=== PATIENT | male | born 1935 | race Caucasian/White ===

== ENCOUNTER 2017-04-24 11:38 | Emergency (ER) | payer MEDICARE, SELFPAY ==
[~2017-04-24] VITALS: Ht 185.4 cm; Wt 74.8 kg
[~2017-04-24 11:38] MED LIST: ALBU90OI INH; ALEN70 PO; ALL DAY ALLERGY10 M1 PO; ALLER-TEC; ALLER-TEC D 5-1 EACH PO; AMAN100 PO; ASPI81EC PO; CALCAVITD PO; CALCIUM 500 +1 EAC2 PO; CARV3.125; CARV3.125 PO; CEPH500 PO; CETI5 PO; CIPR500 PO; CLOP75 PO; Carbidopa-Levo1 EAC1; Carbidopa-Levo1 EAC2 PO; Detrol LA2 MG PO; FURO20; FURO20 PO; GAVILAX17 GM PO; GENT.3OPSA OD; LEVCAR2510 PO; LEVFLO500 PO; LEVSOD50 PO; LISI5; LISI5 PO; Lisinopril2.5 MG; METO50ER PO; MYRBETRIQ50 MG PO; Norco 10-325 T1 EACH PO; OXYB5 PO; PRAM.5; PRAM.5 PO; Percocet 5-3251 EACH PO; Prednisone20 MG PO; SIMV10 PO; SPIR25; SPIR25 PO; Synthroid25 MCG PO; TOLTERODINE TARTRATE; TOLTERODINE TARTRATE PO; TRIA80TC TOP; TROSPIUM CHLORI20 MG; VICODIN 5-3001 EACH PO; Ventolin5 MG/1 ML INH; XARELTO20 MG; ZYRTEC10 M1 PO
[2017-04-24] MEDS ORDERED: CEPH500 PO (12:33)
[2017-04-24] MEDS ORDERED: GABA300 PO (13:55)
[2017-04-24] MEDS ORDERED: TRIA15CR3 TOP (13:56)
[2017-09-19] MEDS ORDERED: ELIQUIS5 MG PO (02:17)
[2017-09-19] MEDS ORDERED: LORA.5 PO (02:18)
[2017-09-19] MEDS ORDERED: TOLT4 PO (02:18)
[2017-09-19] MEDS ORDERED: ASPI81CH PO (02:18)
[2017-09-19] MEDS ORDERED: CHOL10002 PO (02:18)
[2017-09-19] MEDS ORDERED: Omeprazole20 M1 PO (02:19)
[2017-09-19] MEDS ORDERED: ALLER-TEC D 5-1 EACH PO (02:19)
== END 2017-04-24 13:00 | disposition home or self-care (01) ==
LOC: ER 11:38
DX: L89.529 Pressure ulcer of left ankle, unspecified stage (principal); L02.416 Cutaneous abscess of left lower limb; I48.91 Unspecified atrial fibrillation; Z79.899 Other long term (current) drug therapy; Z98.890 Other specified postprocedural states
CPT/HCPCS: 87070; 87077; 87147; 87186; 87205; 99283

== ENCOUNTER 2017-07-04 13:54 | Emergency (ER) | payer MEDICARE, SELFPAY ==
[~2017-07-04] VITALS: Ht 185.4 cm; Wt 74.4 kg
[~2017-07-04 13:54] MED LIST changes: +GABA300 PO; +TRIA15CR3 TOP
[2017-07-04 15:19] LABS: BASOPHILS ABSOLUTE AUTO 0.07 K/mm3 (0.00-0.23); BASOPHILS PERCENT AUTO 2 % (0-2); EOSINOPHILS ABSOLUTE AUTO 0.28 K/mm3 (0.00-0.68); EOSINOPHILS PERCENT AUTO 7 % (0-6); Hematocrit 38.9 % (37.0-53.0); Hemoglobin 12.8 g/dL (13.5-17.5); IMMATURE GRAN ABSOLUTE AUTO 0.02 K/mm3 (0.00-0.10); IMMATURE GRAN PERCENT AUTO 1 % (0-1); LYMPHOCYTES ABSOLUTE AUTO 1.16 K/mm3 (0.84-5.20); LYMPHOCYTES PERCENT AUTO 27 % (21-46); MONOCYTES ABSOLUTE AUTO 0.43 K/mm3 (0.16-1.47); MONOCYTES PERCENT AUTO 10 % (4-13); Mean Corpuscular HGB 29.9 pg (26.0-34.0); Mean Corpuscular HGB Conc 32.9 g/dL (31.5-36.5); Mean Corpuscular Volume 91 fL (80-100); Mean Platelet Volume 9.6 fL (9.1-12.4); NEUTROPHILS ABSOLUTE AUTO 2.36 K/mm3 (1.96-9.15); NEUTROPHILS PERCENT AUTO 55 % (41-73); Platelet Count 168 K/mm3 (150-400); RDW Coefficient Variation 14.6 % (11.7-14.2); Red Blood Cell Count 4.28 M/mm3 (4.30-5.90); White Blood Cell Count 4.32 K/mm3 (4.00-11.30)
[2017-07-04 15:34] LABS: Alanine Aminotransfer (ALT/SGP 17 U/L (12-78); Albumin, Blood 3.6 g/dL (3.4-5.0); Alk Phos 89 U/L (50-136); Anion Gap 7 mmol/L (6-16); Aspartate Aminotrans (AST/SGOT 17 U/L (12-37); Bilirubin, Total 0.5 mg/dL (0.1-1.0); Blood Urea Nitrogen 22 mg/dL (8-24); Bun/Creatinine Ratio 21.8 (12.0-20.0); CO2, Blood 23 mmol/L (21-32); Calcium, Blood 8.3 mg/dL (8.5-10.1); Chloride, Blood 110 mmol/L (98-108); Creatinine, Blood 1.01 mg/dL (0.60-1.20); Globulin, Blood 3.6 g/dL (2.2-4.0); Glomerular Filtration Rate >60 (60-); Glucose, Blood 89 mg/dL (70-99); Potassium, Blood 4.1 mmol/L (3.5-5.5); Sodium, Blood 140 mmol/L (136-145); Total Protein, Blood 7.2 g/dL (6.4-8.2); Troponin I <0.015 ng/mL (0.000-0.040)
== END 2017-07-04 18:10 | disposition home or self-care (01) ==
LOC: ER 13:54
PROVIDERS: Emergency Medicine
DX: R07.9 Chest pain, unspecified (principal); I50.9 Heart failure, unspecified; I48.91 Unspecified atrial fibrillation; Z79.899 Other long term (current) drug therapy
CPT/HCPCS: 36415; 71046; 80053; 83880; 84484; 85025; 93005; 93010; 99283

== ENCOUNTER 2017-09-20 19:00 | Emergency (ER) | payer MEDICARE, SELFPAY ==
[~2017-09-20] VITALS: Ht 185.4 cm; Wt 72.6 kg
[~2017-09-20 19:00] MED LIST changes: +ASPI81CH PO; +CHOL10002 PO; +ELIQUIS5 MG PO; +LORA.5 PO; +Omeprazole20 M1 PO; +TOLT4 PO
[2017-09-20] MEDS ORDERED: OMEPRAZOLE MAGN20 MG PO (20:25)
[2017-09-20 21:18] LABS: BASOPHILS ABSOLUTE AUTO 0.07 K/mm3 (0.00-0.23); BASOPHILS PERCENT AUTO 1 % (0-2); EOSINOPHILS ABSOLUTE AUTO 0.19 K/mm3 (0.00-0.68); EOSINOPHILS PERCENT AUTO 2 % (0-6); Hematocrit 37.4 % (37.0-53.0); Hemoglobin 12.1 g/dL (13.5-17.5); IMMATURE GRAN ABSOLUTE AUTO 0.05 K/mm3 (0.00-0.10); IMMATURE GRAN PERCENT AUTO 1 % (0-1); LYMPHOCYTES ABSOLUTE AUTO 1.21 K/mm3 (0.84-5.20); LYMPHOCYTES PERCENT AUTO 12 % (21-46); MONOCYTES ABSOLUTE AUTO 0.68 K/mm3 (0.16-1.47); MONOCYTES PERCENT AUTO 7 % (4-13); Mean Corpuscular HGB 29.4 pg (26.0-34.0); Mean Corpuscular HGB Conc 32.4 g/dL (31.5-36.5); Mean Corpuscular Volume 91 fL (80-100); Mean Platelet Volume 9.9 fL (9.1-12.4); NEUTROPHILS ABSOLUTE AUTO 7.76 K/mm3 (1.96-9.15); NEUTROPHILS PERCENT AUTO 78 % (41-73); Platelet Count 169 K/mm3 (150-400); RDW Coefficient Variation 14.1 % (11.7-14.2); RDW Standard Deviation 47.3 fL (35.1-46.3); Red Blood Cell Count 4.12 M/mm3 (4.30-5.90); White Blood Cell Count 9.96 K/mm3 (4.00-11.30)
[2017-09-20 21:35] LABS: Alanine Aminotransfer (ALT/SGP 12 U/L (12-78); Albumin, Blood 3.8 g/dL (3.4-5.0); Albumin/Globulin Ratio 1.2 (0.8-1.8); Alk Phos 86 U/L (50-136); Anion Gap 8 mmol/L (6-16); Aspartate Aminotrans (AST/SGOT 27 U/L (12-37); Bilirubin, Total 0.5 mg/dL (0.1-1.0); Blood Urea Nitrogen 29 mg/dL (8-24); Bun/Creatinine Ratio 24.2 (12.0-20.0); CO2, Blood 23 mmol/L (21-32); CPK Creatine Kinase 687 U/L (39-308); Calcium, Blood 8.6 mg/dL (8.5-10.1); Chloride, Blood 106 mmol/L (98-108); Creatine Kinase MB 19.3 ng/mL (0.0-3.6); Creatine Kinase MB Index 2.8 (0.0-4.0); Globulin, Blood 3.3 g/dL (2.2-4.0); Glomerular Filtration Rate >60 (60-); Glucose, Blood 95 mg/dL (70-99); Potassium, Blood 4.5 mmol/L (3.5-5.5); Sodium, Blood 137 mmol/L (136-145); Total Protein, Blood 7.1 g/dL (6.4-8.2)
[2017-09-20 22:08] LABS: Source, Urine Clean Catch
[2017-09-20 22:13] LABS: Bilirubin, Urine Neg (Neg); Blood, Urine 3+ (Neg); Glucose Qualitative, Urine Neg (Neg); Ketones, Urine 1+ (Neg); Leukocyte Esterase, Urine Neg (Neg); Nitrite, Urine Neg (Neg); Protein, Urine 2+ (Neg); Urobilinogen, Urine NORM (Normal)
[2017-09-20 22:20] LABS: Amorphous Light (0-Heavy); Appearance, Urine Clear (Clear); Bacteria Not Seen /hpf; Color, Urine Yellow (P-Yellow); Squamous Epithelial Cells Not Seen /hpf (Few); White Blood Cells, Urine Rare /hpf (0-5)
== END 2017-09-20 23:43 | disposition home or self-care (01) ==
LOC: ER 19:00
PROVIDERS: Emergency Medicine
DX: T67.5XXA Heat exhaustion, unspecified, initial encounter (principal); E86.0 Dehydration; L89.892 Pressure ulcer of other site, stage 2; Z86.73 Personal history of transient ischemic attack (TIA), and cerebral infarction without residual deficits; I50.9 Heart failure, unspecified; I48.91 Unspecified atrial fibrillation
CPT/HCPCS: 36415; 80053; 81001; 82550; 82553; 85025; 93005; 93010; 96360; 99284-25; J7030

== ENCOUNTER 2017-11-07 16:58 | Emergency (ER) | payer MEDICARE, SELFPAY ==
[~2017-11-07] VITALS: Ht 180.3 cm; Wt 74.8 kg
[~2017-11-07 16:58] MED LIST changes: +OMEPRAZOLE MAGN20 MG PO
== END 2017-11-07 17:52 | disposition home or self-care (01) ==
LOC: ER 16:58
DX: S61.012A Laceration without foreign body of left thumb without damage to nail, initial encounter (principal); W26.0XXA Contact with knife, initial encounter; Z79.899 Other long term (current) drug therapy; Z79.82 Long term (current) use of aspirin; Z86.73 Personal history of transient ischemic attack (TIA), and cerebral infarction without residual deficits; I50.9 Heart failure, unspecified; I48.91 Unspecified atrial fibrillation
CPT/HCPCS: 12001; 99282

== ENCOUNTER 2017-11-18 09:09 | Emergency (ER) | payer MEDICARE, SELFPAY ==
[~2017-11-18] VITALS: Ht 172.7 cm; Wt 74.8 kg
[2017-11-18] MEDS ORDERED: Keflex500 MG PO (11:00)
[2017-11-18] MEDS ORDERED: Vibramycin100 MG PO (11:00)
== END 2017-11-18 11:10 | disposition home or self-care (01) ==
LOC: ER 09:09
DX: L03.012 Cellulitis of left finger (principal); Z79.899 Other long term (current) drug therapy; Z79.82 Long term (current) use of aspirin; G20 Parkinson's disease; I50.9 Heart failure, unspecified; I48.91 Unspecified atrial fibrillation
CPT/HCPCS: 99282

== ENCOUNTER 2018-03-07 08:59 | Emergency (ER) | payer MEDICARE, OTHER ==
[~2018-03-07] VITALS: Ht 177.8 cm; Wt 77.1 kg
[~2018-03-07 08:59] MED LIST changes: +Keflex500 MG PO; +Vibramycin100 MG PO
[2018-03-07 09:46] LABS: Source, Urine Clean Catch
[2018-03-07 09:49] LABS: Bilirubin, Urine Neg (Neg); Blood, Urine 5+ (Neg); Glucose Qualitative, Urine Neg (Neg); Ketones, Urine 1+ (Neg); Leukocyte Esterase, Urine 1+ (Neg); Nitrite, Urine Neg (Neg); Protein, Urine 2+ (Neg); Urobilinogen, Urine NORM (Normal)
[2018-03-07 10:03] LABS: Appearance, Urine Hazy (Clear); Color, Urine Yellow (P-Yellow)
[2018-03-07 10:04] LABS: Red Blood Cells, Urine TNTC /hpf (0-2); Squamous Epithelial Cells Rare /hpf (Few); White Blood Cells, Urine 0-2 /hpf (0-5)
[2018-03-07 10:05] LABS: Bacteria Not Seen /hpf
[2018-03-07 10:48] LABS: BASOPHILS ABSOLUTE AUTO 0.08 K/mm3 (0.00-0.23); BASOPHILS PERCENT AUTO 1 % (0-2); EOSINOPHILS ABSOLUTE AUTO 0.24 K/mm3 (0.00-0.68); EOSINOPHILS PERCENT AUTO 4 % (0-6); Hematocrit 39.2 % (37.0-53.0); Hemoglobin 12.5 g/dL (13.5-17.5); IMMATURE GRAN ABSOLUTE AUTO 0.03 K/mm3 (0.00-0.10); IMMATURE GRAN PERCENT AUTO 1 % (0-1); LYMPHOCYTES ABSOLUTE AUTO 1.24 K/mm3 (0.84-5.20); LYMPHOCYTES PERCENT AUTO 20 % (21-46); MONOCYTES ABSOLUTE AUTO 0.34 K/mm3 (0.16-1.47); MONOCYTES PERCENT AUTO 6 % (4-13); Mean Corpuscular HGB 29.6 pg (26.0-34.0); Mean Corpuscular HGB Conc 31.9 g/dL (31.5-36.5); Mean Corpuscular Volume 93 fL (80-100); Mean Platelet Volume 9.4 fL (9.1-12.4); NEUTROPHILS PERCENT AUTO 69 % (41-73); Platelet Count 148 K/mm3 (150-400); RDW Coefficient Variation 14.7 % (11.7-14.2); RDW Standard Deviation 50.5 fL (35.1-46.3); Red Blood Cell Count 4.23 M/mm3 (4.30-5.90); White Blood Cell Count 6.23 K/mm3 (4.00-11.30)
[2018-03-07 11:00] LABS: International Normalized Ratio 1.11; Prothrombin Time Results 11.4 Sec (9.7-11.5)
[2018-03-07 11:01] LABS: Anion Gap 7 mmol/L (6-16); Blood Urea Nitrogen 26 mg/dL (8-24); Bun/Creatinine Ratio 24.1 (12.0-20.0); CO2, Blood 25 mmol/L (21-32); Calcium, Blood 8.4 mg/dL (8.5-10.1); Chloride, Blood 106 mmol/L (98-108); Creatinine, Blood 1.08 mg/dL (0.60-1.20); Glomerular Filtration Rate >60 (60-); Glucose, Blood 89 mg/dL (70-99); Potassium, Blood 4.4 mmol/L (3.5-5.5); Sodium, Blood 138 mmol/L (136-145)
== END 2018-03-07 11:50 | disposition home or self-care (01) ==
LOC: ER 08:59
PROVIDERS: Emergency Medicine
DX: R31.9 Hematuria, unspecified (principal); I48.91 Unspecified atrial fibrillation; I50.9 Heart failure, unspecified; G20 Parkinson's disease; Z86.73 Personal history of transient ischemic attack (TIA), and cerebral infarction without residual deficits; Z79.82 Long term (current) use of aspirin; Z79.899 Other long term (current) drug therapy
CPT/HCPCS: 36415; 80048; 81001; 85025; 85610; 87086; 99283

== ENCOUNTER 2018-06-06 06:14 | Day surgery (SDC) | payer MEDICARE, OTHER ==
[~2018-06-06] VITALS: Ht 175.3 cm; Wt 77.1 kg
[~2018-06-06 06:14] MED LIST changes: +Aspirin EC81 MG PO; +LEVSOD75 PO; +Mirapex0.125 MG PO; +VITAMIN D32000 UNIT PO; +Zantac150 MG PO
[2018-06-06] MEDS ORDERED: GLYC2 PO (06:56)
== END 2018-06-06 08:33 | disposition home or self-care (01) ==
LOC: ORSCSDS 06:14
PROVIDERS: Orthopaedic Surgery
PROC: 01N50ZZ Release Median Nerve, Open Approach (ICD-10-PCS; principal; 2018-06-06 07:30)
DX: G56.01 Carpal tunnel syndrome, right upper limb (principal); G20 Parkinson's disease; E03.9 Hypothyroidism, unspecified; I10 Essential (primary) hypertension; I25.10 Atherosclerotic heart disease of native coronary artery without angina pectoris; K21.9 Gastro-esophageal reflux disease without esophagitis; Z79.01 Long term (current) use of anticoagulants; Z79.82 Long term (current) use of aspirin; Z79.899 Other long term (current) drug therapy
CPT/HCPCS: J2250; J3010; J3370; J7120

== ENCOUNTER 2018-06-15 10:14 | Day surgery (SDC) | payer MEDICARE, OTHER ==
[~2018-06-15 10:14] MED LIST changes: +GLYC2 PO; +MYRBETRIQ25 MG PO; +Mirapex1.5 MG PO; +TRAM50 PO
--- NOTE | 2018-06-15 11:21 | NUR ---
INTO SDS VIA WHEELCHAIR. PT HAS HISTORY OF PARKINSON'S. SPOUSE CLYDE AT BEDSIDE TO CONFIRM HISTORY AND ALLERGIES. NPO STATUS CONFIRMED. LUNGS CLEAR-PT HAS HISORY OF AFIB-O2 SATS VIA EAR PROBE 97%
--- NOTE | 2018-06-15 12:25 | NUR ---
INTO STEP VIA MEÑO. S/P PEG TUBE PLACEMENT. PT SLEEPY, BUT AWAKENS TO VOICE. PT DRIFTS OFF TO SLEEP WHEN NOT DISTURBED. PEG TUBE SITE CLEAR-DRAIN SPONGE AND TAPE C/D/I.
--- NOTE | 2018-06-15 14:27 | NUR ---
Dressing to procedure site clean, dry, intact with no visible drainage, swelling, erythema or bruising noted. Discharge instructions reviewed with patient and spouse Mary Ellen. Patient verbalizes understanding. Copy given to patient to take home. Discharged via wheelchair to private car for ride home.
--- NOTE | 2018-06-16 06:49 | NUR ---
06/16/18 0648 Micah Hannon Bite Block PlacedPatient to ENDO 1History, Chart, Medications and Allergies reviewed before start of procedure.O2 VIA N/C INTACT THROUGHOUT SEDATION/PROCEDURE.See Anesthesia record
== END 2018-06-15 14:30 | disposition home or self-care (01) ==
LOC: ORSCMMR 10:14 → ORD 11:30 → ORSCMMR 11:30
PROVIDERS: Surgery
PROC: 0DH63UZ Insertion of Feeding Device into Stomach, Percutaneous Approach (ICD-10-PCS; principal; 2018-06-15 11:30)
DX: R13.14 Dysphagia, pharyngoesophageal phase (principal); K21.9 Gastro-esophageal reflux disease without esophagitis; G20 Parkinson's disease; I10 Essential (primary) hypertension; I48.91 Unspecified atrial fibrillation; Z79.899 Other long term (current) drug therapy; Z86.718 Personal history of other venous thrombosis and embolism
CPT/HCPCS: C1769; J0690; J2370; J2704; J7120

== ENCOUNTER 2018-07-26 21:15 | Emergency (ER) | payer MEDICARE, SELFPAY ==
[~2018-07-26] VITALS: Ht 188 cm; Wt 99.8 kg
[2018-07-26 21:34] LABS: BASOPHILS PERCENT AUTO 2 % (0-2); EOSINOPHILS ABSOLUTE AUTO 0.25 K/mm3 (0.00-0.68); EOSINOPHILS PERCENT AUTO 4 % (0-6); Hematocrit 38.5 % (37.0-53.0); Hemoglobin 12.3 g/dL (13.5-17.5); IMMATURE GRAN ABSOLUTE AUTO 0.05 K/mm3 (0.00-0.10); IMMATURE GRAN PERCENT AUTO 1 % (0-1); LYMPHOCYTES ABSOLUTE AUTO 0.97 K/mm3 (0.84-5.20); LYMPHOCYTES PERCENT AUTO 15 % (21-46); MONOCYTES ABSOLUTE AUTO 0.54 K/mm3 (0.16-1.47); MONOCYTES PERCENT AUTO 8 % (4-13); Mean Corpuscular HGB 30.5 pg (26.0-34.0); Mean Corpuscular HGB Conc 31.9 g/dL (31.5-36.5); Mean Corpuscular Volume 96 fL (80-100); Mean Platelet Volume 10.8 fL (9.1-12.4); NEUTROPHILS PERCENT AUTO 71 % (41-73); Platelet Count 181 K/mm3 (150-400); RDW Coefficient Variation 14.4 % (11.7-14.2); RDW Standard Deviation 50.4 fL (35.1-46.3); Red Blood Cell Count 4.03 M/mm3 (4.30-5.90); White Blood Cell Count 6.61 K/mm3 (4.00-11.30)
[2018-07-26] MEDS ORDERED: DOXA1 PO (21:38)
[2018-07-26 21:52] LABS: Alanine Aminotransfer (ALT/SGP 16 U/L (12-78); Albumin/Globulin Ratio 1.3 (0.8-1.8); Alk Phos 85 U/L (50-136); Anion Gap 17 mmol/L (6-16); Aspartate Aminotrans (AST/SGOT 16 U/L (12-37); Bilirubin, Total 0.5 mg/dL (0.1-1.0); Blood Urea Nitrogen 37 mg/dL (8-24); Bun/Creatinine Ratio 33.9 (12.0-20.0); CO2, Blood 20 mmol/L (21-32); Chloride, Blood 101 mmol/L (98-108); Creatinine, Blood 1.09 mg/dL (0.60-1.20); Globulin, Blood 3.1 g/dL (2.2-4.0); Glomerular Filtration Rate >60 (60-); Glucose, Blood 94 mg/dL (70-99); Potassium, Blood 4.3 mmol/L (3.5-5.5); Sodium, Blood 138 mmol/L (136-145); Total Protein, Blood 7.1 g/dL (6.4-8.2)
[2018-07-26] MEDS ORDERED: Mupirocin22 GM TOP (22:15)
[2018-07-26 22:37] LABS: Magnesium, Blood 2.5 mg/dL (1.6-2.4); Troponin I <0.015 ng/mL (0.000-0.040)
[2018-07-26 22:51] LABS: Source, Urine Catheter
[2018-07-26 23:02] LABS: Appearance, Urine Clear (Clear); Bilirubin, Urine Neg (Neg); Blood, Urine 1+ (Neg); Color, Urine Yellow (P-Yellow); Glucose Qualitative, Urine Neg (Neg); Ketones, Urine 1+ (Neg); Leukocyte Esterase, Urine Neg (Neg); Nitrite, Urine Neg (Neg); Protein, Urine 2+ (Neg); Urobilinogen, Urine NORM (Normal)
[2018-07-26 23:07] LABS: Squamous Epithelial Cells Few /hpf (Few); White Blood Cells, Urine 0-2 /hpf (0-5)
[2018-07-26 23:08] LABS: Amorphous Light ({null, 0-Heavy}); Bacteria Few /hpf
== END 2018-07-27 00:56 | disposition home or self-care (01) ==
LOC: ER 21:15
PROVIDERS: Emergency Medicine
DX: G20 Parkinson's disease (principal); R56.9 Unspecified convulsions; Z79.899 Other long term (current) drug therapy; Z79.82 Long term (current) use of aspirin; Z86.73 Personal history of transient ischemic attack (TIA), and cerebral infarction without residual deficits; I48.91 Unspecified atrial fibrillation; I50.9 Heart failure, unspecified
CPT/HCPCS: 51701; 70450; 80053; 81001; 83735; 83880; 84484; 85025; 93005; 93010; 99285-25; J7030